=== PATIENT | female | born 1955 | race Caucasian/White ===

== ENCOUNTER 2021-07-18 14:44 | Inpatient (IN) ==
[2021-07-18] MEDS ORDERED: Ipratropium/Albuterol Neb 3 ML IH ONE (15:11)
[2021-07-18] MEDS ORDERED: Isovue-370 500 ML BOTTLE IVP ONE (15:11)
[2021-07-18 15:48] LABS: Basophils % 0.2 %; Eosinophils % 0.6 %; Hemoglobin 13.2 g/dL (11.5-15.4); Red Cell Distribution Width 15.6 % (11.5-14.5)
[2021-07-18 15:50] LABS: Eosinophils # 0.1 K/mcL (0.0-0.6); Hematocrit 42.1 % (35.3-44.9); Immature Granulocytes % 0.7 % (0-4); Immature Platelets 3.8 % (1.1-6.1); Lymphocytes # 3.9 K/mcL (0.6-4.6); Lymphocytes % 22.3 %; Mean Corpuscular HGB Conc 31.4 g/dL (31.6-35.5); Mean Corpuscular Hemoglobin 26.9 pg (28.0-33.3); Mean Corpuscular Volume 85.9 fL (83.0-100.0); Mean Platelet Volume 10.4 fL (9.4-12.4); Monocytes # 1.6 K/mcL (0.0-1.3); Monocytes % 9.1 %; Neutrophils # 11.6 K/mcL (1.6-8.9); Platelet Count 216 K/mcL (140-400); Segmented Neutrophils % 67.1 %; White Blood Count 17.3 K/mcL (4.3-11.1)
[2021-07-18 15:53] LABS: VBG HCO3 25 mEq/L (21-27); VBG PCO2 42 mmHg (41-51); VBG PH 7.39 pH Units (7.32-7.42); VBG PO2 57 mmHg (25-50)
[2021-07-18 16:06] LABS: Alanine Aminotransferase 12 Units/L (7-52); Albumin 3.9 g/dL (3.5-5.7); Albumin/Globulin Ratio 1.4 (1.1-2.2); Alkaline Phosphatase 94 Units/L (34-104); Aspartate Amino Transferase 15 Units/L (13-39); BUN/Creatinine Ratio 37 (6-26); Bilirubin,Direct 0.1 mg/dL (0.0-0.2); Bilirubin,Indirect 0.5 mg/dL (0.0-1.0); Bilirubin,Total 0.6 mg/dL (0.3-1.0); Blood Urea Nitrogen 28 mg/dL (8-23); Carbon Dioxide 23 mEq/L (23-29); Chloride 106 mEq/L (98-107); Globulin 2.7 g/dL (2.4-3.5); Glucose 135 mg/dL (70-105); Osmolality,Calculated 288 (280-300); Potassium 3.6 mEq/L (3.5-5.1); Sodium 135 mEq/L (136-145); Total Protein 6.6 g/dL (6.4-8.9); Troponin I 0.07 ng/mL (< 0.04); eGFR For African Americans > 60 (> 60); eGFR For Non-African Americans > 60 (> 60)
[2021-07-18 16:32] LABS: Platelet Clumps Few (Not Present); Reactive Lymphocytes Present (Not Present)
[2021-07-18 17:58] LABS: Influenza A PCR Negative (Negative); Influenza B PCR Negative (Negative); Resp. Syncytial Virus PCR Negative (Negative)
[2021-07-18 17:59] LABS: SARS-CoV-2 by PCR (In House) Negative (Negative)
[2021-07-18] MEDS ORDERED: *HR* Heparin 5,000 UNIT/ML VIAL IVP PRN ×2 (18:03)
[2021-07-18] MEDS ORDERED: *HR* Heparin 5,000 UNIT/ML VIAL IVP ONE (18:03)
[2021-07-18] MEDS ORDERED: Melatonin 3 MG TABLET PO PRN (18:20)
[2021-07-18] MEDS ORDERED: Naloxone 0.4 MG/ML INJ IVP PRN (18:20)
[2021-07-18] MEDS ORDERED: Perflutren Lipid Microsphere 1.3 ML in 0.9 % Sodium Chloride 8.7 ML IVP PRN (18:25)
[2021-07-18] MEDS: Heparin 25,000UNIT/250ML 1/2NS 25,000 UNIT/250 ML IV.SOLN IVC SCH (18:29)
[2021-07-18] MEDS ORDERED: Aspirin 325 MG TABLET PO ONE (19:17)
[2021-07-18] MEDS: *HR* LORazepam 2 MG/ML VIAL IVP PRN (20:04)
[2021-07-18] MEDS: predniSONE 20 MG TABLET PO SCH (21:07)
[2021-07-19 00:33] LABS: Basophils % 0.1 %; Eosinophils # 0.1 K/mcL (0.0-0.6); Eosinophils % 0.4 %; Hematocrit 40.1 % (35.3-44.9); Hemoglobin 12.5 g/dL (11.5-15.4); Immature Granulocytes % 0.7 % (0-4); Lymphocytes # 1.7 K/mcL (0.6-4.6); Lymphocytes % 12.6 %; Mean Corpuscular HGB Conc 31.2 g/dL (31.6-35.5); Mean Corpuscular Hemoglobin 27.4 pg (28.0-33.3); Mean Corpuscular Volume 87.7 fL (83.0-100.0); Mean Platelet Volume 9.8 fL (9.4-12.4); Monocytes % 6.9 %; Platelet Count 215 K/mcL (140-400); Red Blood Count 4.57 M/mcL (3.82-4.97); Red Cell Distribution Width 15.8 % (11.5-14.5); Segmented Neutrophils % 79.3 %; White Blood Count 13.8 K/mcL (4.3-11.1)
[2021-07-19 00:54] LABS: BUN/Creatinine Ratio 33 (6-26); Blood Urea Nitrogen 28 mg/dL (8-23); Calcium 8.9 mg/dL (8.6-10.3); Carbon Dioxide 25 mEq/L (23-29); Chloride 103 mEq/L (98-107); Glucose 197 mg/dL (70-105); Magnesium 2.1 mg/dL (1.6-2.6); Osmolality,Calculated 293 (280-300); Phosphorous 3.2 mg/dL (2.7-4.5); Potassium 4.5 mEq/L (3.5-5.1); Sodium 136 mEq/L (136-145); eGFR For African Americans > 60 (> 60); eGFR For Non-African Americans > 60 (> 60)
[2021-07-19] MEDS: Aspirin 81 MG TAB.CHEW PO SCH (09:38)
[2021-07-19] MEDS: predniSONE 20 MG TABLET PO SCH (09:39)
[2021-07-19] MEDS: *HR* LORazepam 2 MG/ML VIAL IVP PRN (09:44)
[2021-07-19] MEDS ORDERED: methylPREDNISolone 125 MG/2 ML VIAL IVP ONE (13:30)
[2021-07-19] MEDS: Sulfamethoxazole/Trimeth DS 1 EACH TABLET PO SCH (14:29)
[2021-07-19] MEDS ORDERED: predniSONE 20 MG TABLET PO SCH (16:00)
[2021-07-19] MEDS: Fluticasone Propionate Nasal 50 MCG/SPRAY BOTTLE NS SCH (19:04)
[2021-07-19] MEDS: Heparin 25,000UNIT/250ML 1/2NS 25,000 UNIT/250 ML IV.SOLN IVC SCH (23:25)
[2021-07-20 01:13] LABS: Hematocrit 39.2 % (35.3-44.9); Hemoglobin 12.1 g/dL (11.5-15.4); Mean Corpuscular HGB Conc 30.9 g/dL (31.6-35.5); Mean Corpuscular Hemoglobin 26.8 pg (28.0-33.3); Mean Corpuscular Volume 86.9 fL (83.0-100.0); Mean Platelet Volume 10.3 fL (9.4-12.4); Platelet Count 231 K/mcL (140-400); Red Blood Count 4.51 M/mcL (3.82-4.97); Red Cell Distribution Width 15.8 % (11.5-14.5); White Blood Count 9.5 K/mcL (4.3-11.1)
[2021-07-20 01:31] LABS: BUN/Creatinine Ratio 35 (6-26); Blood Urea Nitrogen 25 mg/dL (8-23); Calcium 8.4 mg/dL (8.6-10.3); Carbon Dioxide 22 mEq/L (23-29); Chloride 105 mEq/L (98-107); Glucose 295 mg/dL (70-105); Magnesium 2.1 mg/dL (1.6-2.6); Osmolality,Calculated 301 (280-300); Phosphorous 2.7 mg/dL (2.7-4.5); Potassium 4.6 mEq/L (3.5-5.1); Sodium 138 mEq/L (136-145); eGFR For African Americans > 60 (> 60); eGFR For Non-African Americans > 60 (> 60)
[2021-07-20] MEDS: Aspirin 81 MG TAB.CHEW PO SCH (09:03)
[2021-07-20] MEDS: *HR* LORazepam 2 MG/ML VIAL IVP PRN (09:04)
[2021-07-20] MEDS: Fluticasone Propionate Nasal 50 MCG/SPRAY BOTTLE NS SCH (09:13)
[2021-07-20] MEDS ORDERED: Acetaminophen 325 MG TABLET PO PRN (10:46)
[2021-07-21 04:13] LABS: Bilirubin,Urine Negative (Negative); Blood,Urine Negative (Negative); Clarity,Urine Clear (Clear); Color,Urine Colorless (Yellow); Glucose,Urine (UA) Normal (Normal); Ketones,Urine Negative (Negative); Leukocyte Esterase,Urine Negative (Negative); Nitrite,Urine Negative (Negative); Protein,Urine Negative (Neg-Trace); Specific Gravity,Urine 1.009 (1.010-1.025); Urobilinogen,Urine Normal (Normal)
[2021-07-21 05:50] LABS: Hematocrit 37.8 % (35.3-44.9); Hemoglobin 12.2 g/dL (11.5-15.4); Mean Corpuscular HGB Conc 32.3 g/dL (31.6-35.5); Mean Corpuscular Volume 86.9 fL (83.0-100.0); Mean Platelet Volume 10.2 fL (9.4-12.4); Platelet Count 237 K/mcL (140-400); Red Blood Count 4.35 M/mcL (3.82-4.97); Red Cell Distribution Width 15.8 % (11.5-14.5); White Blood Count 14.2 K/mcL (4.3-11.1)
[2021-07-21] MEDS: Heparin 25,000UNIT/250ML 1/2NS 25,000 UNIT/250 ML IV.SOLN IVC SCH (05:50)
[2021-07-21 06:09] LABS: BUN/Creatinine Ratio 27 (6-26); Blood Urea Nitrogen 25 mg/dL (8-23); Calcium 8.3 mg/dL (8.6-10.3); Carbon Dioxide 26 mEq/L (23-29); Chloride 105 mEq/L (98-107); Glucose 132 mg/dL (70-105); Osmolality,Calculated 292 (280-300); Sodium 138 mEq/L (136-145); eGFR For African Americans > 60 (> 60); eGFR For Non-African Americans > 60 (> 60)
[2021-07-21] MEDS: Aspirin 81 MG TAB.CHEW PO SCH (08:12)
[2021-07-21] MEDS: Fluticasone Propionate Nasal 50 MCG/SPRAY BOTTLE NS SCH (08:22)
[2021-07-21] MEDS ORDERED: predniSONE 10 MG TABLET PO SCH (09:00)
[2021-07-21] MEDS: methylPREDNISolone 125 MG/2 ML VIAL IVP SCH ×2 (12:06→18:18)
[2021-07-21] MEDS ORDERED: methylPREDNISolone 125 MG in 0.9 % Sodium Chloride 100 ML IVPB ONE (13:07)
[2021-07-22] MEDS: methylPREDNISolone 125 MG/2 ML VIAL IVP SCH ×4 (00:11→16:54)
[2021-07-22 05:22] LABS: Basophils % 0.2 %; Hematocrit 38.1 % (35.3-44.9); Immature Granulocytes % 0.9 % (0-4); Lymphocytes # 0.9 K/mcL (0.6-4.6); Lymphocytes % 7.8 %; Mean Corpuscular HGB Conc 31.5 g/dL (31.6-35.5); Mean Corpuscular Hemoglobin 27.3 pg (28.0-33.3); Mean Corpuscular Volume 86.6 fL (83.0-100.0); Mean Platelet Volume 10.4 fL (9.4-12.4); Monocytes # 0.1 K/mcL (0.0-1.3); Monocytes % 1.2 %; Neutrophils # 9.7 K/mcL (1.6-8.9); Platelet Count 217 K/mcL (140-400); Red Cell Distribution Width 15.7 % (11.5-14.5); Segmented Neutrophils % 89.9 %; White Blood Count 10.8 K/mcL (4.3-11.1)
[2021-07-22 05:44] LABS: BUN/Creatinine Ratio 46 (6-26); Blood Urea Nitrogen 26 mg/dL (8-23); Calcium 8.7 mg/dL (8.6-10.3); Carbon Dioxide 24 mEq/L (23-29); Chloride 105 mEq/L (98-107); Glucose 210 mg/dL (70-105); Osmolality,Calculated 295 (280-300); Potassium 4.2 mEq/L (3.5-5.1); Sodium 137 mEq/L (136-145); eGFR For African Americans > 60 (> 60); eGFR For Non-African Americans > 60 (> 60)
[2021-07-22] MEDS: Fluticasone Propionate Nasal 50 MCG/SPRAY BOTTLE NS SCH (08:27)
[2021-07-22] MEDS: Heparin 25,000UNIT/250ML 1/2NS 25,000 UNIT/250 ML IV.SOLN IVC SCH ×2 (08:38→14:00)
[2021-07-22] MEDS: Sulfamethoxazole/Trimeth DS 1 EACH TABLET PO SCH (08:52)
[2021-07-22] MEDS: Aspirin 81 MG TAB.CHEW PO SCH (08:52)
[2021-07-22] MEDS ORDERED: Sulfamethoxazole/Trimeth DS 1 EACH TABLET PO SCH (09:00)
[2021-07-22] MEDS ORDERED: PrednisoLONE Oral Soln 15 MG/5 ML UDC PO SCH (09:00)
[2021-07-22 13:35] LABS: Influenza A PCR Negative (Negative); Influenza B PCR Negative (Negative); Resp. Syncytial Virus PCR Negative (Negative)
[2021-07-22 13:38] LABS: SARS-CoV-2 by PCR (In House) Negative (Negative)
[2021-07-22 15:38] VITALS: BP 144/82; PULSE 90; TEMP 97.6
[2021-07-22] MEDS ORDERED: Apixaban 5 MG TABLET PO ONE (16:30)
[2021-07-22 17:14] VITALS: O2SAT 95
[2021-07-23 13:36] LABS: Ribonucleic Protein IgG-Sm/RNP 2 Units (0-19); SSA 52 (Anti-RO) Antibody 0 AU/mL (0-40); SSA 60 (Anti-RO) Antibody 0 AU/mL (0-40)
[2021-07-24 13:43] LABS: Ribonucleic Protein IgG-Sm/RNP 2 Units (0-19)
== END 2021-07-22 18:00 | disposition home or self-care (01) | DRG 189 ==
LOC: EMEROOARM 14:44 → SUATTDRO 19:43 → 2NNU 19:43
PROVIDERS: ADMIT Internal Medicine; ATTEND Student in an Organized Health Care Education/Training Program

== ENCOUNTER 2021-08-27 15:47 | Inpatient (IN) ==
[2021-08-27] MEDS ORDERED: Acetaminophen 325 MG TABLET PO PRN (17:26)
[2021-08-27] MEDS ORDERED: Ondansetron 4 MG/2 ML VIAL IVP PRN (17:26)
[2021-08-27] MEDS ORDERED: Naloxone 0.4 MG/ML INJ IVP PRN (17:26)
[2021-08-27] MEDS ORDERED: Ipratropium/Albuterol Neb 3 ML IH PRN (17:31)
[2021-08-27] MEDS ORDERED: *HR* LORazepam 0.5 MG TABLET PO PRN (18:15)
[2021-08-27] MEDS: *HR* Enoxaparin 80 MG/0.8 ML SYRINGE SQ SCH (19:47)
[2021-08-27 20:33] LABS: Bilirubin,Urine Negative (Negative); Blood,Urine Negative (Negative); Clarity,Urine Clear (Clear); Color,Urine Colorless (Yellow); Glucose,Urine (UA) 70 mg/dL (Normal); Ketones,Urine Negative (Negative); Leukocyte Esterase,Urine Negative (Negative); Mucus,Urine Few per lpf (None-Few); Nitrite,Urine Negative (Negative); Protein,Urine 30 mg/dL (Neg-Trace); RBC,Urine 0-3 per hpf (0-3); Specific Gravity,Urine 1.015 (1.010-1.025); Squamous Epithelial Cell,Urine Few per hpf (None-Few); Urobilinogen,Urine Normal (Normal); WBC,Urine 0-3 per hpf (0-3)
[2021-08-28] MEDS: *HR* Enoxaparin 80 MG/0.8 ML SYRINGE SQ SCH (05:25)
[2021-08-28 06:13] LABS: Basophils % 0.2 %; Eosinophils # 0.1 K/mcL (0.0-0.6); Eosinophils % 0.9 %; Hemoglobin 12.5 g/dL (11.5-15.4); Immature Granulocytes % 0.9 % (0-4); Lymphocytes # 3.8 K/mcL (0.6-4.6); Lymphocytes % 28.8 %; Mean Corpuscular HGB Conc 32.1 g/dL (31.6-35.5); Mean Corpuscular Hemoglobin 28.3 pg (28.0-33.3); Mean Corpuscular Volume 88.2 fL (83.0-100.0); Mean Platelet Volume 10.4 fL (9.4-12.4); Monocytes # 1.3 K/mcL (0.0-1.3); Monocytes % 9.9 %; Neutrophils # 7.8 K/mcL (1.6-8.9); Platelet Count 244 K/mcL (140-400); Red Blood Count 4.42 M/mcL (3.82-4.97); Red Cell Distribution Width 16.4 % (11.5-14.5); Segmented Neutrophils % 59.3 %; White Blood Count 13.1 K/mcL (4.3-11.1)
[2021-08-28 06:23] LABS: INR 1.1; Prothrombin Time 12.6 Seconds (9.4-12.1)
[2021-08-28] MEDS: Aspirin 81 MG TAB.CHEW PO SCH (08:52)
[2021-08-28] MEDS: Magnesium Oxide 400 MG TABLET PO SCH (08:52)
[2021-08-28] MEDS: predniSONE 20 MG TABLET PO SCH (08:52)
[2021-08-28] MEDS: Sulfamethoxazole/Trimeth DS 1 EACH TABLET PO SCH (08:52)
[2021-08-28] MEDS: Fluticasone Propionate Nasal 50 MCG/SPRAY BOTTLE NS SCH (08:52)
[2021-08-28] MEDS ORDERED: MSM PO SCH (09:00)
[2021-08-28] MEDS ORDERED: CHONDROITIN A PO SCH (09:00)
[2021-08-28] MEDS ORDERED: GLUCOSAMINE PO SCH (09:00)
[2021-08-28 09:02] LABS: BUN/Creatinine Ratio 42 (6-26); Blood Urea Nitrogen 28 mg/dL (8-23); Calcium 8.6 mg/dL (8.6-10.3); Carbon Dioxide 23 mEq/L (23-29); Chloride 107 mEq/L (98-107); Glucose 98 mg/dL (70-105); Osmolality,Calculated 293 (280-300); Sodium 139 mEq/L (136-145); Thyroid Stimulating Hormone 3.016 mcIU/mL (0.340-5.600); eGFR For African Americans > 60 (> 60); eGFR For Non-African Americans > 60 (> 60)
[2021-08-29] MEDS: predniSONE 20 MG TABLET PO SCH ×2 (07:40→07:45)
[2021-08-29] MEDS: Magnesium Oxide 400 MG TABLET PO SCH (07:41)
[2021-08-29] MEDS: Aspirin 81 MG TAB.CHEW PO SCH (07:41)
[2021-08-29] MEDS: Fluticasone Propionate Nasal 50 MCG/SPRAY BOTTLE NS SCH (07:41)
[2021-08-29] MEDS ORDERED: Ondansetron 4 MG/2 ML VIAL ONE (08:42)
[2021-08-29] MEDS ORDERED: *HR* Succinylcholine 200 MG/10 ML VIAL IVP ONE (08:42)
[2021-08-29] MEDS ORDERED: Lidocaine -MPF 4% 5 ML AMPUL ONE (08:42)
[2021-08-29] MEDS ORDERED: Lidocaine HCL 4 ML Topical Solution (Laryng-O-Jet Kit Sterile Pak) TP ONE (08:42)
[2021-08-29] MEDS ORDERED: *HR* Rocuronium Bromide 50 MG/5 ML VIAL ONE (08:42)
[2021-08-29] MEDS ORDERED: *HR* Midazolam HCl 2 MG/2 ML VIAL ONE (08:43)
[2021-08-29] MEDS ORDERED: *HR* FentaNYL (PF) 100 MCG/2 ML VIAL ONE (08:43)
[2021-08-29] MEDS ORDERED: *HR* Propofol 200 MG/20 ML VIAL IVP ONE (08:43)
[2021-08-29] MEDS ORDERED: Clindamycin 600 MG/50 ML 600 MG/50 ML IV.SOLN IVPB ONE ×2 (09:53→14:07)
[2021-08-29] MEDS ORDERED: Hydrocortisone Sodium Succ 100 MG/2 ML VIAL ONE (09:56)
[2021-08-29] MEDS ORDERED: Sugammadex Sodium 200 MG/2 ML VIAL IV ONE (10:59)
[2021-08-29] MEDS ORDERED: Ketorolac 30 MG/ML VIAL ONE (10:59)
[2021-08-29] MEDS ORDERED: Clindamycin 900 MG/50 ML 900 MG/50 ML IV.SOLN IVPB ONE (11:18)
[2021-08-29] MEDS ORDERED: *HR* HYDROcodone/Acet 5/325 mg TABLET PO PRN (11:26)
[2021-08-29] MEDS ORDERED: 0.9 % Sodium Chloride 1,000 ML IVC SCH (11:30)
[2021-08-29] MEDS ORDERED: Ondansetron 4 MG/2 ML VIAL IVP PRN (11:43)
[2021-08-29] MEDS: *HR* HYDROmorphone (PF) 1 MG/ML SYRINGE ONE ×2 (11:47→11:52)
[2021-08-29] MEDS ORDERED: Ipratropium/Albuterol Neb 3 ML IH SCH (12:00)
[2021-08-29] MEDS: *HR* HYDROmorphone PF 0.5 MG/0.5 ML SYRINGE IVP PRN ×2 (12:05→12:18)
[2021-08-29] MEDS ORDERED: Ringers Solution, Lactated 1,000 ML ONE (12:11)
[2021-08-29] MEDS ORDERED: Naloxone 0.4 MG/ML INJ IVP PRN (14:07)
[2021-08-29] MEDS ORDERED: Acetaminophen 325 MG TABLET PO PRN (14:07)
[2021-08-29] MEDS ORDERED: Gadolinium Contrast Agent (WT Based) IV PRN (14:34)
[2021-08-29] MEDS: Gabapentin 300 MG CAPSULE PO SCH ×2 (15:00→21:18)
[2021-08-29] MEDS ORDERED: Gabapentin 300 MG CAPSULE PO SCH (15:00)
[2021-08-29] MEDS: Ipratropium/Albuterol Neb 3 ML IH SCH ×3 (15:25→23:28)
[2021-08-29] MEDS: 0.9 % Sodium Chloride 1,000 ML IVC SCH (16:29)
[2021-08-29] MEDS: *HR* HYDROcodone/Acet 5/325 mg TABLET PO PRN (16:57)
[2021-08-29] MEDS ORDERED: Famotidine 20 MG TABLET PO SCH (21:00)
[2021-08-29] MEDS: Famotidine 20 MG TABLET PO SCH (21:18)
[2021-08-29] MEDS: *HR* LORazepam 0.5 MG TABLET PO PRN (21:18)
[2021-08-30] MEDS: *HR* HYDROcodone/Acet 5/325 mg TABLET PO PRN ×4 (03:04→21:01)
[2021-08-30] MEDS: Ipratropium/Albuterol Neb 3 ML IH SCH ×6 (03:47→23:40)
[2021-08-30] MEDS: 0.9 % Sodium Chloride 1,000 ML IVC SCH (06:21)
[2021-08-30] MEDS ORDERED: Apixaban 5 MG TABLET PO SCH (08:00)
[2021-08-30 09:19] LABS: Basophils % 0.1 %; Eosinophils % 0.1 %; Hematocrit 41.5 % (35.3-44.9); Immature Granulocytes % 0.5 % (0-4); Lymphocytes # 1.6 K/mcL (0.6-4.6); Lymphocytes % 12.4 %; Mean Corpuscular HGB Conc 31.3 g/dL (31.6-35.5); Mean Corpuscular Hemoglobin 27.8 pg (28.0-33.3); Mean Corpuscular Volume 88.7 fL (83.0-100.0); Mean Platelet Volume 10.4 fL (9.4-12.4); Monocytes # 1.5 K/mcL (0.0-1.3); Monocytes % 11.4 %; Platelet Count 238 K/mcL (140-400); Red Blood Count 4.68 M/mcL (3.82-4.97); Red Cell Distribution Width 16.3 % (11.5-14.5); Segmented Neutrophils % 75.5 %; White Blood Count 13.3 K/mcL (4.3-11.1)
[2021-08-30] MEDS: Magnesium Oxide 400 MG TABLET PO SCH (09:31)
[2021-08-30] MEDS: Famotidine 20 MG TABLET PO SCH ×2 (09:31→20:58)
[2021-08-30] MEDS: Gabapentin 300 MG CAPSULE PO SCH ×3 (09:31→20:59)
[2021-08-30 09:33] LABS: BUN/Creatinine Ratio 27 (6-26); Blood Urea Nitrogen 17 mg/dL (8-23); Calcium 9.4 mg/dL (8.6-10.3); Carbon Dioxide 25 mEq/L (23-29); Chloride 105 mEq/L (98-107); Glucose 154 mg/dL (70-105); Osmolality,Calculated 291 (280-300); Potassium 4.1 mEq/L (3.5-5.1); Sodium 138 mEq/L (136-145); eGFR For African Americans > 60 (> 60); eGFR For Non-African Americans > 60 (> 60)
[2021-08-30] MEDS: Sulfamethoxazole/Trimeth DS 1 EACH TABLET PO SCH ×2 (09:33→09:35)
[2021-08-30] MEDS: Aspirin 81 MG TAB.CHEW PO SCH (09:34)
[2021-08-30] MEDS: Fluticasone Propionate Nasal 50 MCG/SPRAY BOTTLE NS SCH (19:48)
[2021-08-31 02:26] LABS: BUN/Creatinine Ratio 32 (6-26); Blood Urea Nitrogen 22 mg/dL (8-23); Calcium 8.3 mg/dL (8.6-10.3); Carbon Dioxide 25 mEq/L (23-29); Chloride 107 mEq/L (98-107); Glucose 201 mg/dL (70-105); Osmolality,Calculated 297 (280-300); Sodium 139 mEq/L (136-145); eGFR For African Americans > 60 (> 60); eGFR For Non-African Americans > 60 (> 60)
[2021-08-31 02:38] LABS: Basophils % 0.2 %; Eosinophils # 0.1 K/mcL (0.0-0.6); Eosinophils % 0.5 %; Hematocrit 36.7 % (35.3-44.9); Hemoglobin 11.8 g/dL (11.5-15.4); Immature Granulocytes % 0.8 % (0-4); Lymphocytes # 1.8 K/mcL (0.6-4.6); Lymphocytes % 13.1 %; Mean Corpuscular HGB Conc 32.2 g/dL (31.6-35.5); Mean Corpuscular Hemoglobin 28.4 pg (28.0-33.3); Mean Corpuscular Volume 88.2 fL (83.0-100.0); Mean Platelet Volume 10.5 fL (9.4-12.4); Monocytes # 1.6 K/mcL (0.0-1.3); Monocytes % 11.6 %; Neutrophils # 9.9 K/mcL (1.6-8.9); Platelet Count 213 K/mcL (140-400); Red Blood Count 4.16 M/mcL (3.82-4.97); Red Cell Distribution Width 16.5 % (11.5-14.5); Segmented Neutrophils % 73.8 %; White Blood Count 13.5 K/mcL (4.3-11.1)
[2021-08-31] MEDS: Ipratropium/Albuterol Neb 3 ML IH SCH ×5 (03:23→20:18)
[2021-08-31] MEDS: *HR* HYDROcodone/Acet 5/325 mg TABLET PO PRN ×3 (09:13→20:31)
[2021-08-31] MEDS: Gabapentin 300 MG CAPSULE PO SCH ×3 (09:38→20:27)
[2021-08-31] MEDS: Magnesium Oxide 400 MG TABLET PO SCH (09:38)
[2021-08-31] MEDS: Aspirin 81 MG TAB.CHEW PO SCH (09:38)
[2021-08-31] MEDS: Fluticasone Propionate Nasal 50 MCG/SPRAY BOTTLE NS SCH (09:40)
[2021-08-31] MEDS: Famotidine 20 MG TABLET PO SCH ×2 (09:41→20:27)
[2021-08-31] MEDS: Sulfamethoxazole/Trimeth DS 1 EACH TABLET PO SCH (09:42)
[2021-08-31] MEDS: *HR* LORazepam 0.5 MG TABLET PO PRN ×2 (09:44→22:09)
[2021-08-31] MEDS ORDERED: *HR* Heparin 5,000 UNIT/ML VIAL IVP PRN ×2 (12:42)
[2021-08-31] MEDS ORDERED: Heparin 25,000UNIT/250ML 1/2NS 25,000 UNIT/250 ML IV.SOLN IVC SCH ×2 (12:45→12:48)
[2021-08-31] MEDS: predniSONE 20 MG TABLET PO SCH (13:39)
[2021-08-31] MEDS: Heparin 25,000UNIT/250ML 1/2NS 25,000 UNIT/250 ML IV.SOLN IVC SCH (13:40)
[2021-08-31 14:19] LABS: Hematocrit 41.5 % (35.3-44.9); Hemoglobin 12.8 g/dL (11.5-15.4); Mean Corpuscular HGB Conc 30.8 g/dL (31.6-35.5); Mean Corpuscular Hemoglobin 27.7 pg (28.0-33.3); Mean Corpuscular Volume 89.8 fL (83.0-100.0); Mean Platelet Volume 10.7 fL (9.4-12.4); Platelet Count 206 K/mcL (140-400); Red Blood Count 4.62 M/mcL (3.82-4.97); Red Cell Distribution Width 16.6 % (11.5-14.5); White Blood Count 14.2 K/mcL (4.3-11.1)
[2021-08-31 14:29] LABS: Heparin anti-factor XA UFH 0.15 IU/mL (0.30-0.70); INR 0.9; Prothrombin Time 10.4 Seconds (9.4-12.1)
[2021-09-01] MEDS: Ipratropium/Albuterol Neb 3 ML IH SCH ×7 (00:09→23:23)
[2021-09-01] MEDS: *HR* HYDROcodone/Acet 5/325 mg TABLET PO PRN ×2 (01:34→15:25)
[2021-09-01 04:00] LABS: Basophils % 0.2 %; Hematocrit 35.6 % (35.3-44.9); Lymphocytes % 7.8 %; Mean Corpuscular HGB Conc 31.2 g/dL (31.6-35.5); Mean Corpuscular Hemoglobin 27.9 pg (28.0-33.3); Mean Corpuscular Volume 89.4 fL (83.0-100.0); Mean Platelet Volume 10.7 fL (9.4-12.4); Monocytes % 7.9 %; Neutrophils # 10.2 K/mcL (1.6-8.9); Platelet Count 190 K/mcL (140-400); Red Blood Count 3.98 M/mcL (3.82-4.97); Red Cell Distribution Width 16.3 % (11.5-14.5); Segmented Neutrophils % 83.1 %; White Blood Count 12.2 K/mcL (4.3-11.1)
[2021-09-01 04:03] LABS: Hemoglobin 11.1 g/dL (11.5-15.4)
[2021-09-01 04:16] LABS: BUN/Creatinine Ratio 29 (6-26); Blood Urea Nitrogen 19 mg/dL (8-23); Calcium 8.3 mg/dL (8.6-10.3); Carbon Dioxide 26 mEq/L (23-29); Chloride 105 mEq/L (98-107); Glucose 314 mg/dL (70-105); Osmolality,Calculated 294 (280-300); Potassium 4.3 mEq/L (3.5-5.1); Sodium 135 mEq/L (136-145); eGFR For African Americans > 60 (> 60); eGFR For Non-African Americans > 60 (> 60)
[2021-09-01] MEDS: Magnesium Oxide 400 MG TABLET PO SCH (08:13)
[2021-09-01] MEDS: Famotidine 20 MG TABLET PO SCH ×2 (08:14→20:15)
[2021-09-01] MEDS: Gabapentin 300 MG CAPSULE PO SCH ×3 (08:14→20:15)
[2021-09-01] MEDS: Aspirin 81 MG TAB.CHEW PO SCH (08:14)
[2021-09-01] MEDS: predniSONE 20 MG TABLET PO SCH (08:14)
[2021-09-01] MEDS: Fluticasone Propionate Nasal 50 MCG/SPRAY BOTTLE NS SCH (08:15)
[2021-09-01] MEDS: *HR* LORazepam 0.5 MG TABLET PO PRN (08:40)
[2021-09-01] MEDS: Heparin 25,000UNIT/250ML 1/2NS 25,000 UNIT/250 ML IV.SOLN IVC SCH (11:31)
[2021-09-02] MEDS: Ipratropium/Albuterol Neb 3 ML IH SCH ×4 (03:36→15:43)
[2021-09-02] MEDS: *HR* HYDROcodone/Acet 5/325 mg TABLET PO PRN ×2 (03:50→12:49)
[2021-09-02 04:39] LABS: Basophils % 0.3 %; Eosinophils # 0.1 K/mcL (0.0-0.6); Eosinophils % 0.4 %; Hematocrit 36.3 % (35.3-44.9); Hemoglobin 11.5 g/dL (11.5-15.4); Immature Granulocytes % 1.3 % (0-4); Lymphocytes # 1.9 K/mcL (0.6-4.6); Lymphocytes % 13.2 %; Mean Corpuscular HGB Conc 31.7 g/dL (31.6-35.5); Mean Corpuscular Hemoglobin 28.3 pg (28.0-33.3); Mean Corpuscular Volume 89.2 fL (83.0-100.0); Mean Platelet Volume 10.6 fL (9.4-12.4); Monocytes # 1.3 K/mcL (0.0-1.3); Neutrophils # 10.7 K/mcL (1.6-8.9); Platelet Count 236 K/mcL (140-400); Red Blood Count 4.07 M/mcL (3.82-4.97); Red Cell Distribution Width 16.3 % (11.5-14.5); Segmented Neutrophils % 75.8 %; White Blood Count 14.1 K/mcL (4.3-11.1)
[2021-09-02 04:54] LABS: BUN/Creatinine Ratio 32 (6-26); Blood Urea Nitrogen 25 mg/dL (8-23); Calcium 8.6 mg/dL (8.6-10.3); Carbon Dioxide 24 mEq/L (23-29); Chloride 106 mEq/L (98-107); Glucose 220 mg/dL (70-105); Osmolality,Calculated 295 (280-300); Potassium 4.3 mEq/L (3.5-5.1); Sodium 137 mEq/L (136-145); eGFR For African Americans > 60 (> 60); eGFR For Non-African Americans > 60 (> 60)
[2021-09-02] MEDS: Magnesium Oxide 400 MG TABLET PO SCH (08:59)
[2021-09-02] MEDS: Famotidine 20 MG TABLET PO SCH (08:59)
[2021-09-02] MEDS: Aspirin 81 MG TAB.CHEW PO SCH (08:59)
[2021-09-02] MEDS: Gabapentin 300 MG CAPSULE PO SCH (08:59)
[2021-09-02] MEDS ORDERED: Apixaban 5 MG TABLET PO SCH (09:00)
[2021-09-02] MEDS ORDERED: predniSONE 10 MG TABLET PO SCH (09:15)
[2021-09-02] MEDS ORDERED: Sulfamethoxazole/Trimeth DS 1 EACH TABLET PO ONE (10:05)
[2021-09-02] MEDS: Fluticasone Propionate Nasal 50 MCG/SPRAY BOTTLE NS SCH (10:12)
[2021-09-02] MEDS ORDERED: Lactulose Oral Soln 20 GM/30 ML UDC PO ONE (11:54)
[2021-09-02 12:26] VITALS: BP 143/72; PULSE 104; TEMP 97.9; O2SAT 93
[2021-09-02] MEDS ORDERED: polyethylene glycoL 3350 17 GM POWD.PACK PO SCH (12:30)
== END 2021-09-02 13:44 | disposition home or self-care (01) | DRG 163 ==
LOC: 3ANU → 2NNU 08-29 13:59 → SUATTDRO 08-29 18:24
PROVIDERS: ADMIT Student in an Organized Health Care Education/Training Program; ATTEND Hospitalist

== ENCOUNTER 2021-11-06 13:02 | Inpatient (IN) ==
[2021-11-06] MEDS ORDERED: Lidocaine -MPF 1% 2 ML AMPUL INFILT ONE (13:10)
[2021-11-06] MEDS ORDERED: Lidocaine 1% 20 ML MDV INFILT ONE (13:15)
[2021-11-06] MEDS ORDERED: *HR* HYDROcodone/Acet 5/325 mg TABLET PO PRN (13:44)
[2021-11-06] MEDS ORDERED: Naloxone 0.4 MG/ML INJ IVP PRN (13:44)
[2021-11-06] MEDS: *HR* HYDROmorphone (PF) 1 MG/ML SYRINGE IVP PRN ×2 (13:47→17:53)
[2021-11-06 13:57] LABS: Basophils % 0.2 %; Eosinophils # 0.4 K/mcL (0.0-0.6); Eosinophils % 7.6 %; Hematocrit 34.3 % (35.3-44.9); Hemoglobin 10.4 g/dL (11.5-15.4); Immature Granulocytes % 0.6 % (0-4); Lymphocytes % 33.5 %; Mean Corpuscular HGB Conc 30.3 g/dL (31.6-35.5); Mean Corpuscular Volume 92.2 fL (83.0-100.0); Mean Platelet Volume 10.3 fL (9.4-12.4); Monocytes # 0.9 K/mcL (0.0-1.3); Monocytes % 20.3 %; Neutrophils # 1.7 K/mcL (1.6-8.9); Platelet Count 118 K/mcL (140-400); Red Blood Count 3.72 M/mcL (3.82-4.97); Red Cell Distribution Width 15.7 % (11.5-14.5); Segmented Neutrophils % 37.8 %; White Blood Count 4.6 K/mcL (4.3-11.1)
[2021-11-06 14:04] LABS: Lymphocytes # 1.5 K/mcL (0.6-4.6)
[2021-11-06] MEDS ORDERED: 0.9 % Sodium Chloride 1,000 ML IV ONE (14:06)
[2021-11-06 14:32] LABS: BUN/Creatinine Ratio 16 (6-26); Blood Urea Nitrogen 10 mg/dL (8-23); Calcium 9.6 mg/dL (8.6-10.3); Carbon Dioxide 30 mEq/L (23-29); Chloride 104 mEq/L (98-107); Glucose 113 mg/dL (70-105); Osmolality,Calculated 292 (280-300); Potassium 4.1 mEq/L (3.5-5.1); Sodium 141 mEq/L (136-145); eGFR For African Americans > 60 (> 60); eGFR For Non-African Americans > 60 (> 60)
[2021-11-06 14:54] LABS: Platelet Estimate Slight Decrease (Normal)
[2021-11-06] MEDS: Ondansetron 4 MG/2 ML VIAL IVP PRN ×2 (15:45→21:25)
[2021-11-06] MEDS: Ipratropium/Albuterol Neb 3 ML IH SCH ×3 (16:02→23:54)
[2021-11-06] MEDS: Ketorolac 30 MG/ML VIAL IVP SCH ×2 (17:53→23:59)
[2021-11-06] MEDS: Apixaban 5 MG TABLET PO SCH (21:48)
[2021-11-06] MEDS: Famotidine 20 MG TABLET PO SCH (21:48)
[2021-11-07] MEDS: Ondansetron 4 MG/2 ML VIAL IVP PRN (05:45)
[2021-11-07] MEDS: Ketorolac 30 MG/ML VIAL IVP SCH (05:45)
[2021-11-07] MEDS: *HR* HYDROmorphone (PF) 1 MG/ML SYRINGE IVP PRN (06:17)
[2021-11-07 07:07] VITALS: TEMP 97.5
[2021-11-07] MEDS: Famotidine 20 MG TABLET PO SCH (08:06)
[2021-11-07] MEDS: Apixaban 5 MG TABLET PO SCH (08:06)
[2021-11-07 11:03] VITALS: BP 118/60; PULSE 95; O2SAT 98
== END 2021-11-07 13:30 | disposition home or self-care (01) | DRG 199 ==
LOC: EMEROOARM 13:02 → 2NENU 13:02
PROVIDERS: ADMIT Internal Medicine; ATTEND Internal Medicine

== ENCOUNTER 2021-12-16 09:17 | Inpatient (IN) ==
[2021-12-16] MEDS ORDERED: Naloxone 0.4 MG/ML INJ IVP PRN (14:24)
[2021-12-16] MEDS ORDERED: *HR* HYDROmorphone (PF) 1 MG/ML SYRINGE IVP ONE (15:55)
[2021-12-16 17:54] LABS: Hematocrit 22.4 % (35.3-44.9); Immature Platelets 6.4 % (1.1-6.1); Mean Corpuscular HGB Conc 31.3 g/dL (31.6-35.5); Mean Corpuscular Hemoglobin 28.8 pg (28.0-33.3); Mean Corpuscular Volume 92.2 fL (83.0-100.0); Mean Platelet Volume 10.9 fL (9.4-12.4); Red Blood Count 2.43 M/mcL (3.82-4.97); Red Cell Distribution Width 18.6 % (11.5-14.5); White Blood Count 3.9 K/mcL (4.3-11.1)
[2021-12-16] MEDS ORDERED: *HR* Metoprolol 5 MG/5 ML VIAL IVP ONE ×2 (17:58→18:02)
[2021-12-16 18:08] LABS: Alanine Aminotransferase 11 Units/L (7-52); Albumin 3.4 g/dL (3.5-5.7); Alkaline Phosphatase 89 Units/L (34-104); Aspartate Amino Transferase 17 Units/L (13-39); BUN/Creatinine Ratio 15 (6-26); Bilirubin,Total 0.4 mg/dL (0.3-1.0); Blood Urea Nitrogen 9 mg/dL (8-23); Carbon Dioxide 27 mEq/L (23-29); Chloride 105 mEq/L (98-107); Globulin 3.3 g/dL (2.4-3.5); Glucose 106 mg/dL (70-105); Magnesium 1.9 mg/dL (1.6-2.6); Osmolality,Calculated 287 (280-300); Potassium 3.9 mEq/L (3.5-5.1); Sodium 139 mEq/L (136-145); Total Protein 6.7 g/dL (6.4-8.9); eGFR For African Americans > 60 (> 60); eGFR For Non-African Americans > 60 (> 60)
[2021-12-16] MEDS ORDERED: 0.9 % Sodium Chloride 250 ML IVC SCH (18:30)
[2021-12-16] MEDS: *HR* LORazepam 0.5 MG TABLET PO PRN (20:37)
[2021-12-17] MEDS: Folic Acid 1 MG TABLET PO SCH (07:43)
[2021-12-17] MEDS: Fluticasone Propionate Nasal 50 MCG/SPRAY BOTTLE NS SCH (07:44)
[2021-12-17 08:22] LABS: Hematocrit 20.4 % (35.3-44.9); Hemoglobin 6.4 g/dL (11.5-15.4); Immature Platelets 1.6 % (1.1-6.1); Mean Corpuscular HGB Conc 31.4 g/dL (31.6-35.5); Mean Corpuscular Hemoglobin 29.1 pg (28.0-33.3); Mean Corpuscular Volume 92.7 fL (83.0-100.0); Mean Platelet Volume 9.8 fL (9.4-12.4); Red Blood Count 2.2 M/mcL (3.82-4.97); Red Cell Distribution Width 18.7 % (11.5-14.5); White Blood Count 3.4 K/mcL (4.3-11.1)
[2021-12-17 08:25] LABS: BUN/Creatinine Ratio 15 (6-26); Blood Urea Nitrogen 9 mg/dL (8-23); Calcium 8.6 mg/dL (8.6-10.3); Carbon Dioxide 26 mEq/L (23-29); Chloride 103 mEq/L (98-107); Glucose 110 mg/dL (70-105); Magnesium 1.9 mg/dL (1.6-2.6); Osmolality,Calculated 287 (280-300); Potassium 3.9 mEq/L (3.5-5.1); Sodium 139 mEq/L (136-145); eGFR For African Americans > 60 (> 60); eGFR For Non-African Americans > 60 (> 60)
[2021-12-17] MEDS ORDERED: Aspirin 81 MG TAB.CHEW PO SCH (09:00)
[2021-12-17] MEDS: *HR* LORazepam 0.5 MG TABLET PO PRN (10:56)
[2021-12-17] MEDS: *HR* HYDROmorphone (PF) 1 MG/ML SYRINGE IVP PRN ×3 (11:37→20:37)
[2021-12-17 18:44] LABS: Basophils % 0.3 %; Eosinophils # 0.1 K/mcL (0.0-0.6); Eosinophils % 1.9 %; Hematocrit 25.8 % (35.3-44.9); Hemoglobin 8.3 g/dL (11.5-15.4); Immature Granulocytes % 0.3 % (0-4); Immature Platelets 1.8 % (1.1-6.1); Lymphocytes # 1.1 K/mcL (0.6-4.6); Lymphocytes % 30.1 %; Mean Corpuscular HGB Conc 32.2 g/dL (31.6-35.5); Mean Corpuscular Hemoglobin 28.9 pg (28.0-33.3); Mean Corpuscular Volume 89.9 fL (83.0-100.0); Mean Platelet Volume 9.3 fL (9.4-12.4); Monocytes # 0.9 K/mcL (0.0-1.3); Monocytes % 23.8 %; Neutrophils # 1.6 K/mcL (1.6-8.9); Red Blood Count 2.87 M/mcL (3.82-4.97); Red Cell Distribution Width 17.6 % (11.5-14.5); Segmented Neutrophils % 43.6 %; White Blood Count 3.6 K/mcL (4.3-11.1)
[2021-12-17 18:45] LABS: Platelet Count 81 K/mcL (140-400)
[2021-12-17 19:07] LABS: Anisocytosis 1+ (Not Present); Platelet Estimate Decreased (Normal)
[2021-12-17 19:08] LABS: Hypochromasia Present (Not Present)
[2021-12-17] MEDS: Ondansetron 4 MG/2 ML VIAL IVP PRN (19:10)
[2021-12-18] MEDS: Acetaminophen 325 MG TABLET PO PRN ×4 (01:40→20:56)
[2021-12-18 03:28] LABS: Immature Granulocytes % 0.3 % (0-4); Lymphocytes % 36.5 %; Mean Platelet Volume 10.4 fL (9.4-12.4); Red Cell Distribution Width 18.2 % (11.5-14.5)
[2021-12-18 03:29] LABS: Basophils % 0.5 %; Eosinophils # 0.1 K/mcL (0.0-0.6); Eosinophils % 3.2 %; Hematocrit 26.6 % (35.3-44.9); Hemoglobin 8.5 g/dL (11.5-15.4); Immature Platelets 2.8 % (1.1-6.1); Lymphocytes # 1.4 K/mcL (0.6-4.6); Mean Corpuscular Hemoglobin 28.9 pg (28.0-33.3); Mean Corpuscular Volume 90.5 fL (83.0-100.0); Monocytes # 0.9 K/mcL (0.0-1.3); Monocytes % 23.8 %; Neutrophils # 1.4 K/mcL (1.6-8.9); Red Blood Count 2.94 M/mcL (3.82-4.97); Segmented Neutrophils % 35.7 %; White Blood Count 3.8 K/mcL (4.3-11.1)
[2021-12-18 03:49] LABS: Alanine Aminotransferase 9 Units/L (7-52); Albumin 3.1 g/dL (3.5-5.7); Alkaline Phosphatase 82 Units/L (34-104); Aspartate Amino Transferase 13 Units/L (13-39); BUN/Creatinine Ratio 23 (6-26); Bilirubin,Total 0.5 mg/dL (0.3-1.0); Blood Urea Nitrogen 13 mg/dL (8-23); Calcium 8.7 mg/dL (8.6-10.3); Carbon Dioxide 28 mEq/L (23-29); Chloride 105 mEq/L (98-107); Globulin 3.1 g/dL (2.4-3.5); Glucose 132 mg/dL (70-105); Osmolality,Calculated 290 (280-300); Potassium 3.9 mEq/L (3.5-5.1); Sodium 139 mEq/L (136-145); Total Protein 6.2 g/dL (6.4-8.9); eGFR For African Americans > 60 (> 60); eGFR For Non-African Americans > 60 (> 60)
[2021-12-18 03:52] LABS: Platelet Count 75 K/mcL (140-400)
[2021-12-18 04:29] LABS: Anisocytosis 1+ (Not Present); Hypochromasia Present (Not Present); Platelet Estimate Decreased (Normal)
[2021-12-18] MEDS: Folic Acid 1 MG TABLET PO SCH (08:22)
[2021-12-18] MEDS ORDERED: Lidocaine -MPF 0.5% 40 ML, Syringe CATH TIP 1 EACH IX ONE ×2 (09:00→10:15)
[2021-12-18] MEDS ORDERED: Talc (sterile) 4 GM, 0.9 % Sodium Chloride 50 ML, Syringe CATH TIP 1 EACH IX ONE (10:30)
[2021-12-18] MEDS: Ondansetron 4 MG/2 ML VIAL IVP PRN (10:33)
[2021-12-18] MEDS: *HR* HYDROmorphone (PF) 1 MG/ML SYRINGE IVP PRN (10:33)
[2021-12-18] MEDS ORDERED: Lidocaine 1% 20 ML MDV ID ONE (10:43)
[2021-12-18] MEDS: Fluticasone Propionate Nasal 50 MCG/SPRAY BOTTLE NS SCH (11:20)
[2021-12-18] MEDS: *HR* LORazepam 0.5 MG TABLET PO PRN (14:07)
[2021-12-19] MEDS ORDERED: TALC IX ONE ×2 (06:00→07:45)
[2021-12-19] MEDS ORDERED: [UNRECOGNIZED DRUG - OTHER] IX ONE ×2 (06:00→07:45)
[2021-12-19] MEDS ORDERED: SODIUM CHLORIDE IX ONE ×2 (06:00→07:45)
[2021-12-19] MEDS ORDERED: LOK IX ONE ×2 (06:00→07:45)
[2021-12-19] MEDS: *HR* LORazepam 0.5 MG TABLET PO PRN (06:27)
[2021-12-19] MEDS: Acetaminophen 325 MG TABLET PO PRN (06:27)
[2021-12-19] MEDS: Folic Acid 1 MG TABLET PO SCH (08:21)
[2021-12-19] MEDS: Fluticasone Propionate Nasal 50 MCG/SPRAY BOTTLE NS SCH (08:25)
[2021-12-19] MEDS: *HR* OxyCODONE/APAP 5/325 TABLET PO PRN ×2 (13:21→18:11)
[2021-12-19] MEDS: Ondansetron 4 MG/2 ML VIAL IVP PRN (13:21)
[2021-12-20] MEDS: Ondansetron 4 MG/2 ML VIAL IVP PRN ×2 (00:42→09:24)
[2021-12-20] MEDS: *HR* OxyCODONE/APAP 5/325 TABLET PO PRN ×5 (00:42→19:50)
[2021-12-20 02:09] LABS: Red Cell Distribution Width 18.6 % (11.5-14.5)
[2021-12-20 02:11] LABS: Hematocrit 28.2 % (35.3-44.9); Hemoglobin 8.8 g/dL (11.5-15.4); Immature Platelets 3.9 % (1.1-6.1); Mean Corpuscular HGB Conc 31.2 g/dL (31.6-35.5); Mean Corpuscular Hemoglobin 28.6 pg (28.0-33.3); Mean Corpuscular Volume 91.6 fL (83.0-100.0); Red Blood Count 3.08 M/mcL (3.82-4.97); White Blood Count 6.9 K/mcL (4.3-11.1)
[2021-12-20 02:30] LABS: BUN/Creatinine Ratio 23 (6-26); Blood Urea Nitrogen 13 mg/dL (8-23); Calcium 8.6 mg/dL (8.6-10.3); Carbon Dioxide 25 mEq/L (23-29); Chloride 103 mEq/L (98-107); Glucose 111 mg/dL (70-105); Osmolality,Calculated 283 (280-300); Potassium 3.9 mEq/L (3.5-5.1); Sodium 136 mEq/L (136-145); eGFR For African Americans > 60 (> 60); eGFR For Non-African Americans > 60 (> 60)
[2021-12-20] MEDS: Fluticasone Propionate Nasal 50 MCG/SPRAY BOTTLE NS SCH (08:02)
[2021-12-20] MEDS: Folic Acid 1 MG TABLET PO SCH (08:16)
[2021-12-20] MEDS ORDERED: TALC IX ONE (08:30)
[2021-12-20] MEDS ORDERED: [UNRECOGNIZED DRUG - OTHER] IX ONE (08:30)
[2021-12-20] MEDS ORDERED: CATH TIP IX ONE (08:30)
[2021-12-20] MEDS ORDERED: SODIUM CHLORIDE IX ONE (08:30)
[2021-12-20] MEDS: *HR* HYDROmorphone (PF) 1 MG/ML SYRINGE IVP PRN (09:22)
[2021-12-20] MEDS: Acetaminophen 325 MG TABLET PO PRN (23:53)
[2021-12-21] MEDS ORDERED: *HR* Metoprolol 5 MG/5 ML VIAL IVP ONE ×2 (03:09→18:35)
[2021-12-21] MEDS: *HR* LORazepam 0.5 MG TABLET PO PRN ×2 (07:54→23:31)
[2021-12-21] MEDS: Folic Acid 1 MG TABLET PO SCH (07:54)
[2021-12-21] MEDS: Fluticasone Propionate Nasal 50 MCG/SPRAY BOTTLE NS SCH (07:56)
[2021-12-21] MEDS: *HR* OxyCODONE/APAP 5/325 TABLET PO PRN ×3 (11:56→23:30)
[2021-12-21] MEDS ORDERED: *HR* Metoprolol 5 MG/5 ML VIAL IVP SCH (18:45)
[2021-12-22] MEDS: Fluticasone Propionate Nasal 50 MCG/SPRAY BOTTLE NS SCH (07:56)
[2021-12-22] MEDS: Folic Acid 1 MG TABLET PO SCH (07:56)
[2021-12-22] MEDS ORDERED: Metoprolol XL (24 HR) Succ 50 MG TAB.ER.24H PO SCH (08:00)
[2021-12-22] MEDS: *HR* LORazepam 0.5 MG TABLET PO PRN ×2 (09:15→20:17)
[2021-12-22] MEDS: Apixaban 5 MG TABLET PO SCH ×2 (09:15→19:58)
[2021-12-22] MEDS: *HR* OxyCODONE/APAP 5/325 TABLET PO PRN (09:18)
[2021-12-22] MEDS: Acetaminophen 325 MG TABLET PO PRN (17:19)
[2021-12-22] MEDS ORDERED: Metoprolol XL (24 HR) Succ 25 MG TAB.ER.24H PO ONE (18:15)
[2021-12-23 02:58] LABS: Basophils % 0.4 %; Eosinophils # 0.2 K/mcL (0.0-0.6); Eosinophils % 3.3 %; Hematocrit 29.5 % (35.3-44.9); Hemoglobin 9.2 g/dL (11.5-15.4); Immature Granulocytes % 0.6 % (0-4); Lymphocytes # 1.3 K/mcL (0.6-4.6); Lymphocytes % 23.2 %; Mean Corpuscular HGB Conc 31.2 g/dL (31.6-35.5); Mean Corpuscular Hemoglobin 28.8 pg (28.0-33.3); Mean Corpuscular Volume 92.5 fL (83.0-100.0); Mean Platelet Volume 10.5 fL (9.4-12.4); Monocytes % 18.6 %; Neutrophils # 2.9 K/mcL (1.6-8.9); Platelet Count 130 K/mcL (140-400); Red Blood Count 3.19 M/mcL (3.82-4.97); Red Cell Distribution Width 18.1 % (11.5-14.5); Segmented Neutrophils % 53.9 %; White Blood Count 5.4 K/mcL (4.3-11.1)
[2021-12-23 03:33] LABS: Alanine Aminotransferase 15 Units/L (7-52); Albumin/Globulin Ratio 0.9 (1.1-2.2); Alkaline Phosphatase 88 Units/L (34-104); Aspartate Amino Transferase 28 Units/L (13-39); BUN/Creatinine Ratio 19 (6-26); Bilirubin,Total 0.4 mg/dL (0.3-1.0); Blood Urea Nitrogen 12 mg/dL (8-23); Calcium 8.6 mg/dL (8.6-10.3); Carbon Dioxide 22 mEq/L (23-29); Chloride 105 mEq/L (98-107); Globulin 3.5 g/dL (2.4-3.5); Glucose 120 mg/dL (70-105); Osmolality,Calculated 287 (280-300); Potassium 3.8 mEq/L (3.5-5.1); Sodium 138 mEq/L (136-145); Total Protein 6.5 g/dL (6.4-8.9); eGFR For African Americans > 60 (> 60); eGFR For Non-African Americans > 60 (> 60)
[2021-12-23 04:31] LABS: Platelet Estimate Slight Decrease (Normal)
[2021-12-23 04:48] VITALS: BP 110/54; PULSE 89; TEMP 97.8; O2SAT 96
[2021-12-23] MEDS ORDERED: Metoprolol XL (24 HR) Succ 50 MG TAB.ER.24H PO SCH ×3 (06:30→09:00)
[2021-12-23] MEDS: Acetaminophen 325 MG TABLET PO PRN (06:39)
[2021-12-23] MEDS: *HR* LORazepam 0.5 MG TABLET PO PRN (07:56)
[2021-12-23] MEDS: Fluticasone Propionate Nasal 50 MCG/SPRAY BOTTLE NS SCH (07:56)
[2021-12-23] MEDS: Folic Acid 1 MG TABLET PO SCH (07:56)
[2021-12-23] MEDS: Apixaban 5 MG TABLET PO SCH (07:56)
== END 2021-12-23 08:30 | disposition home or self-care (01) | DRG 199 ==
LOC: 2NENU → SUATTDRO 11:56
PROVIDERS: ADMIT Internal Medicine; ATTEND Internal Medicine

== ENCOUNTER 2022-04-28 12:51 | Inpatient (IN) ==
[2022-04-28 13:21] LABS: Basophils % 0.3 %; Eosinophils # 0.1 K/mcL (0.0-0.6); Eosinophils % 0.6 %; Hematocrit 23.7 % (35.3-44.9); Hemoglobin 7.3 g/dL (11.5-15.4); Immature Granulocytes % 0.6 % (0-4); Lymphocytes # 1.4 K/mcL (0.6-4.6); Lymphocytes % 10.8 %; Mean Corpuscular HGB Conc 30.8 g/dL (31.6-35.5); Mean Corpuscular Hemoglobin 31.9 pg (28.0-33.3); Mean Corpuscular Volume 103.5 fL (83.0-100.0); Mean Platelet Volume 10.2 fL (9.4-12.4); Monocytes # 1.6 K/mcL (0.0-1.3); Monocytes % 12.5 %; Neutrophils # 9.4 K/mcL (1.6-8.9); Platelet Count 387 K/mcL (140-400); Red Blood Count 2.29 M/mcL (3.82-4.97); Red Cell Distribution Width 15.9 % (11.5-14.5); Segmented Neutrophils % 75.2 %; White Blood Count 12.5 K/mcL (4.3-11.1)
[2022-04-28] MEDS ORDERED: Iopamidol - 370 500 ML MLS IVP ONE (13:36)
[2022-04-28 13:42] LABS: BUN/Creatinine Ratio 20 (6-26); Blood Urea Nitrogen 19 mg/dL (8-23); Calcium 8.4 mg/dL (8.6-10.3); Carbon Dioxide 23 mEq/L (23-29); Chloride 105 mEq/L (98-107); Glucose 134 mg/dL (70-105); Osmolality,Calculated 286 (280-300); Potassium 4.2 mEq/L (3.5-5.1); Sodium 136 mEq/L (136-145); Troponin I < 0.03 ng/mL (< 0.04)
[2022-04-28] MEDS: Ipratropium/Albuterol Neb 3 ML IH ONE ×2 (14:09→14:17)
[2022-04-28 15:02] LABS: Influenza A PCR Negative (Negative); Influenza B PCR Negative (Negative); Resp. Syncytial Virus PCR Negative (Negative)
[2022-04-28 15:08] LABS: SARS-CoV-2 by PCR (In House) Negative (Negative)
[2022-04-28] MEDS ORDERED: *HR* Heparin 5,000 UNIT/ML VIAL IVP PRN ×4 (15:16→15:28)
[2022-04-28] MEDS ORDERED: *HR* Heparin 5,000 UNIT/ML VIAL IVP ONE ×2 (15:16→15:28)
[2022-04-28] MEDS ORDERED: Heparin 25,000UNIT/250ML 1/2NS 25,000 UNIT/250 ML IV.SOLN IVC SCH ×2 (15:30)
[2022-04-28] MEDS: Heparin 25,000UNIT/250ML 1/2NS 25,000 UNIT/250 ML IV.SOLN IVC SCH (16:11)
[2022-04-28] MEDS ORDERED: Ondansetron 4 MG/2 ML VIAL IVP PRN (16:14)
[2022-04-28 16:47] LABS: INR 2.5; Prothrombin Time 27.8 Seconds (9.4-12.1)
[2022-04-28 17:53] LABS: Hematocrit 22.9 % (35.3-44.9); Hemoglobin 6.9 g/dL (11.5-15.4); Mean Corpuscular HGB Conc 30.1 g/dL (31.6-35.5); Mean Corpuscular Hemoglobin 31.4 pg (28.0-33.3); Mean Corpuscular Volume 104.1 fL (83.0-100.0); Mean Platelet Volume 10.3 fL (9.4-12.4); Platelet Count 351 K/mcL (140-400); Red Cell Distribution Width 15.9 % (11.5-14.5)
[2022-04-28 22:26] LABS: % Iron Saturation 12 % (15-50); Iron 30 mcg/dL (50-170); Transferrin 177 mg/dL (203-362)
[2022-04-28 22:36] LABS: Ferritin 795 ng/mL (10-120)
[2022-04-28 22:43] LABS: Folate > 22.3 ng/mL (3.0-16.0); Vitamin B12 > 1500 pg/mL (250-1100)
[2022-04-29 06:42] LABS: Basophils # 0.1 K/mcL (0.0-0.2); Basophils % 0.6 %; Eosinophils # 0.3 K/mcL (0.0-0.6); Eosinophils % 2.9 %; Hematocrit 22.8 % (35.3-44.9); Hemoglobin 6.9 g/dL (11.5-15.4); Immature Granulocytes % 0.4 % (0-4); Lymphocytes # 1.9 K/mcL (0.6-4.6); Lymphocytes % 18.7 %; Mean Corpuscular HGB Conc 30.3 g/dL (31.6-35.5); Mean Corpuscular Hemoglobin 31.7 pg (28.0-33.3); Mean Corpuscular Volume 104.6 fL (83.0-100.0); Mean Platelet Volume 10.4 fL (9.4-12.4); Monocytes # 1.5 K/mcL (0.0-1.3); Monocytes % 14.5 %; Neutrophils # 6.4 K/mcL (1.6-8.9); Platelet Count 363 K/mcL (140-400); Red Blood Count 2.18 M/mcL (3.82-4.97); Segmented Neutrophils % 62.9 %; White Blood Count 10.2 K/mcL (4.3-11.1)
[2022-04-29 07:00] LABS: Calcium 8.1 mg/dL (8.6-10.3); Potassium 3.9 mEq/L (3.5-5.1)
[2022-04-29] MEDS: levoFLOXacin 750 MG/150 ML 750 MG/150 ML BAG IVPB SCH (08:13)
[2022-04-29] MEDS ORDERED: 0.9 % Sodium Chloride 250 ML ONE (10:05)
[2022-04-29] MEDS: *HR* LORazepam 0.5 MG TABLET PO PRN ×2 (10:28→21:58)
[2022-04-29] MEDS: Metoprolol XL (24 HR) Succ 50 MG TAB.ER.24H PO SCH (10:28)
[2022-04-29] MEDS: Heparin 25,000UNIT/250ML 1/2NS 25,000 UNIT/250 ML IV.SOLN IVC SCH (14:32)
[2022-04-29 14:40] LABS: Hematocrit 24.9 % (35.3-44.9); Hemoglobin 7.7 g/dL (11.5-15.4)
[2022-04-30 03:09] LABS: Hematocrit 22.5 % (35.3-44.9); Mean Corpuscular HGB Conc 31.1 g/dL (31.6-35.5); Mean Corpuscular Hemoglobin 30.7 pg (28.0-33.3); Mean Corpuscular Volume 98.7 fL (83.0-100.0); Mean Platelet Volume 10.1 fL (9.4-12.4); Platelet Count 318 K/mcL (140-400); Red Blood Count 2.28 M/mcL (3.82-4.97); Red Cell Distribution Width 19.4 % (11.5-14.5); White Blood Count 10.6 K/mcL (4.3-11.1)
[2022-04-30 03:32] LABS: Calcium 8.2 mg/dL (8.6-10.3); Potassium 3.8 mEq/L (3.5-5.1)
[2022-04-30] MEDS ORDERED: Benzonatate 100 MG CAPSULE PO PRN (07:37)
[2022-04-30] MEDS: Metoprolol XL (24 HR) Succ 50 MG TAB.ER.24H PO SCH (07:39)
[2022-04-30] MEDS ORDERED: GuaiFENesin/Codeine Oral Soln 5 ML UDC PO PRN (09:16)
[2022-04-30] MEDS ORDERED: polyethylene glycoL 3350 17 GM POWD.PACK PO PRN (09:16)
[2022-04-30] MEDS ORDERED: Furosemide 40 MG TABLET PO PRN (09:16)
[2022-04-30] MEDS ORDERED: Fluticasone Propionate Nasal 50 MCG/SPRAY BOTTLE NS PRN (09:16)
[2022-04-30] MEDS ORDERED: predniSONE 20 MG TABLET PO SCH (09:30)
[2022-04-30] MEDS: Aspirin 81 MG TAB.CHEW PO SCH (10:15)
[2022-04-30] MEDS: *HR* LORazepam 0.5 MG TABLET PO PRN ×2 (10:20→22:27)
[2022-04-30] MEDS: Ipratropium/Albuterol Neb 3 ML IH SCH ×4 (11:18→22:46)
[2022-04-30] MEDS: Heparin 25,000UNIT/250ML 1/2NS 25,000 UNIT/250 ML IV.SOLN IVC SCH (12:07)
[2022-04-30 13:13] LABS: Hemoglobin 7.4 g/dL (11.5-15.4); Mean Corpuscular HGB Conc 30.8 g/dL (31.6-35.5); Mean Corpuscular Hemoglobin 30.6 pg (28.0-33.3); Mean Corpuscular Volume 99.2 fL (83.0-100.0); Mean Platelet Volume 10.5 fL (9.4-12.4); Platelet Count 338 K/mcL (140-400); Red Blood Count 2.42 M/mcL (3.82-4.97); Red Cell Distribution Width 19.3 % (11.5-14.5); White Blood Count 10.8 K/mcL (4.3-11.1)
[2022-04-30] MEDS ORDERED: Furosemide 40 MG TABLET PO ONE (18:17)
[2022-05-01] MEDS: Ipratropium/Albuterol Neb 3 ML IH SCH ×6 (04:05→23:39)
[2022-05-01 05:21] LABS: Hematocrit 22.2 % (35.3-44.9); Mean Corpuscular HGB Conc 31.5 g/dL (31.6-35.5); Mean Corpuscular Hemoglobin 30.8 pg (28.0-33.3); Mean Corpuscular Volume 97.8 fL (83.0-100.0); Mean Platelet Volume 10.5 fL (9.4-12.4); Platelet Count 309 K/mcL (140-400); Red Blood Count 2.27 M/mcL (3.82-4.97); Red Cell Distribution Width 18.1 % (11.5-14.5); White Blood Count 8.4 K/mcL (4.3-11.1)
[2022-05-01 06:34] LABS: Calcium 8.6 mg/dL (8.6-10.3); Potassium 3.4 mEq/L (3.5-5.1)
[2022-05-01] MEDS: levoFLOXacin 750 MG/150 ML 750 MG/150 ML BAG IVPB SCH (08:17)
[2022-05-01] MEDS: predniSONE 20 MG TABLET PO SCH (08:17)
[2022-05-01] MEDS: Metoprolol XL (24 HR) Succ 50 MG TAB.ER.24H PO SCH (08:17)
[2022-05-01] MEDS: Aspirin 81 MG TAB.CHEW PO SCH (08:17)
[2022-05-01] MEDS: Heparin 25,000UNIT/250ML 1/2NS 25,000 UNIT/250 ML IV.SOLN IVC SCH ×2 (08:56→16:57)
[2022-05-01] MEDS: *HR* LORazepam 0.5 MG TABLET PO PRN ×2 (10:50→22:50)
[2022-05-01] MEDS: *HR* Rivaroxaban 15 MG TABLET PO SCH (20:23)
[2022-05-02] MEDS: Ipratropium/Albuterol Neb 3 ML IH SCH ×4 (04:01→15:24)
[2022-05-02 05:58] LABS: Hematocrit 23.2 % (35.3-44.9); Hemoglobin 7.1 g/dL (11.5-15.4); Mean Corpuscular HGB Conc 30.6 g/dL (31.6-35.5); Mean Corpuscular Hemoglobin 31.1 pg (28.0-33.3); Mean Corpuscular Volume 101.8 fL (83.0-100.0); Mean Platelet Volume 9.9 fL (9.4-12.4); Platelet Count 314 K/mcL (140-400); Red Blood Count 2.28 M/mcL (3.82-4.97); Red Cell Distribution Width 17.4 % (11.5-14.5)
[2022-05-02 06:17] LABS: Calcium 8.4 mg/dL (8.6-10.3); Potassium 4.2 mEq/L (3.5-5.1)
[2022-05-02] MEDS: predniSONE 20 MG TABLET PO SCH (08:27)
[2022-05-02] MEDS: Aspirin 81 MG TAB.CHEW PO SCH (08:27)
[2022-05-02] MEDS: *HR* Rivaroxaban 15 MG TABLET PO SCH (08:27)
[2022-05-02] MEDS: Metoprolol XL (24 HR) Succ 50 MG TAB.ER.24H PO SCH (08:28)
[2022-05-02 10:48] VITALS: BP 109/48; PULSE 87; TEMP 98.1
[2022-05-02 15:34] VITALS: O2SAT 92
== END 2022-05-02 17:48 | disposition home or self-care (01) | DRG 175 ==
LOC: EMEROOARM 12:51 → 2NNU 12:51 → SUATTDRO 04-29 10:46
PROVIDERS: ADMIT Hospitalist; ATTEND Student in an Organized Health Care Education/Training Program